=== PATIENT | female | born 1975 | race Caucasian/White ===

== ENCOUNTER 2019-01-13 13:56 | Outpatient (CLI) | payer OTHER ==
[2019-01-21 07:55] LABS: eGFR (Non-African) > 60
[2019-01-21 07:56] LABS: APPEARANCE,URINE CLEAR (CLEAR); BASOPHILS % 0.4 % (0.0-1.5); COLOR,URINE YELLOW (YELLOW); NEUTROPHILS # 3.2 # k/uL (1.4-7.7); OCCULT BLOOD,URINE NEGATIVE (NEGATIVE); PH URINE 6.5 (5.0 - 8.0); UROBILINOGEN URINE 0.2 Eu (0.2-1.0)
== END 2019-01-13 14:01 | disposition home or self-care (01) ==
LOC: LAB 13:56
PROVIDERS: ATTEND Nurse Practitioner Family
DX: R53.83 Other fatigue (principal); R42 Dizziness and giddiness; Z80.7 Family history of other malignant neoplasms of lymphoid, hematopoietic and related tissues
CPT/HCPCS: 36415; 80053; 81002; 84443; 85025